=== PATIENT | male | born 1935 | race Caucasian/White ===

== ENCOUNTER 2016-09-15 06:56 | Emergency (ER) | payer MEDICARE, OTHER | END 2016-09-15 07:40 | disposition home or self-care (01) | LOC: BURERS 06:56 | DX: B35.6 Tinea cruris (principal); I10 Essential (primary) hypertension; E78.5 Hyperlipidemia, unspecified; Z79.899 Other long term (current) drug therapy | CPT/HCPCS: 36416; 99283 ==

== ENCOUNTER 2017-04-15 10:31 | Emergency (ER) | payer MEDICARE, OTHER ==
[2017-04-15] MEDS ORDERED: Bacitracin Zinc 1 Packet ONE (10:53)
[2017-04-15] MEDS ORDERED: Adacel (T-DAP) 0.5 ML VIAL ONE (10:59)
== END 2017-04-15 11:37 | disposition home or self-care (01) ==
LOC: BURERS 10:31
DX: S51.011A Laceration without foreign body of right elbow, initial encounter (principal); I10 Essential (primary) hypertension; E78.5 Hyperlipidemia, unspecified; W10.9XXA Fall (on) (from) unspecified stairs and steps, initial encounter
CPT/HCPCS: 90471; 90715

== ENCOUNTER 2017-05-27 11:42 | Emergency (ER) | payer MEDICARE, OTHER ==
[2017-05-27] MEDS ORDERED: Cephalexin 250 MG CAP ONE (12:11)
== END 2017-05-27 12:22 | disposition home or self-care (01) ==
LOC: BURERS 11:42
DX: L03.116 Cellulitis of left lower limb (principal); I10 Essential (primary) hypertension; E78.5 Hyperlipidemia, unspecified; M19.90 Unspecified osteoarthritis, unspecified site; Z79.899 Other long term (current) drug therapy
CPT/HCPCS: 99282

== ENCOUNTER 2017-09-29 09:03 | Emergency (ER) | payer MEDICARE, OTHER | END 2017-09-29 10:40 | disposition home or self-care (01) | LOC: BURERS 09:03 | DX: R04.0 Epistaxis (principal); I10 Essential (primary) hypertension; E78.00 Pure hypercholesterolemia, unspecified; Z79.899 Other long term (current) drug therapy | CPT/HCPCS: 99283 ==

== ENCOUNTER 2017-12-19 08:20 | Outpatient (CLI) | payer MEDICARE, OTHER ==
--- NOTE | 2017-12-19 11:02 | CT ---
CT ABDOMEN AND PELVIS WITHOUT CONTRAST: Technique: Multiple axial tomograms were obtained through the abdomen and pelvis without IV enhancement. Indications: Renal calculus. Abdominal pain. Comparison: January 2010 FINDINGS: Images through the lung bases reveal small bilateral pleural effusions. Liver, spleen, and pancreas appear unremarkable within the limitations of an unenhanced exam. There is a density layering dependently in the gallbladder, consistent with tiny stones, gravel or de nse sludge. Adrenal glands appear normal. Review of the kidneys show two tiny nonobstructing calculi in the midpole collecting structures of th e left kidney, one measuring approximately 1 mm and the other measuring approximately 2 mm. There is no hydronephrosis. Ureters are unremarkable. The bladder is contracted and not well evaluated. Small bowel loops appear normal. Appendix is not identified. Colon is unremarkable. There are scatter ed diverticula without CT evidence of diverticulitis. Aorta is calcified but normal caliber. No adenopathy or soft tissue mass lesion identified. Prostate is mildly enlarged. Osseous structures appear unremarkable. IMPRESSION: 1. Small bilateral pleural effusions. 2. Tiny stones/gravel in the gallbladder. 3. Two tiny nonobstructing calculi in the upper collecting structures of the left kidney. No evidence of ureteral calculus or hydronephrosis. POS: [facility]
== END 2017-12-19 08:21 | disposition home or self-care (01) ==
LOC: BURCT 08:20
PROVIDERS: ATTEND Urology
DX: N20.0 Calculus of kidney (principal); K80.20 Calculus of gallbladder without cholecystitis without obstruction; J90 Pleural effusion, not elsewhere classified
CPT/HCPCS: 74176

== ENCOUNTER 2018-01-24 09:08 | Emergency (ER) | payer MEDICARE, OTHER ==
[2018-01-24 09:52] LABS: #Basophils 0.1 thou/uL (0.0-0.2); #Monocytes 0.7 thou/uL (0.11-0.59); #Neutrophils 9.2 thou/uL (1.40-6.50); %Basophils 0.7 % (0.0-1.0); %Eosinophils 0.4 % (0.0-10.0); %Lymphocytes 9.1 % (21.0-51.0); %Monocytes 6.6 % (0.0-10.0); %Neutrophils 83.2 % (42.0-75.0); Hemoglobin 15.4 g/dL (14.0-18.0); Mean Corpuscular HGB CONC 35.4 g/dL (32.0-36.0); Mean Corpuscular Volume 90.6 fL (78.0-98.0); Mean Platelet Volume 7.7 fL (7.4-10.4); Platelet Count 151 thou/uL (130-400); RBC Distribution Width 13.1 % (11.5-14.5); Red Blood Cell (RBC) Count 4.79 mill/uL (4.70-6.10); White Blood Cell (WBC) Count 11.1 thou/uL (4.8-10.8)
[2018-01-24] MEDS ORDERED: Sulfameth/Trimethoprim DS 800-160mg TAB ONE (10:15)
== END 2018-01-24 10:25 | disposition home or self-care (01) ==
LOC: BURERS 09:08
DX: L03.115 Cellulitis of right lower limb (principal); I83.93 Asymptomatic varicose veins of bilateral lower extremities; I10 Essential (primary) hypertension; E78.5 Hyperlipidemia, unspecified; M10.9 Gout, unspecified; N40.0 Benign prostatic hyperplasia without lower urinary tract symptoms; Z79.899 Other long term (current) drug therapy
CPT/HCPCS: 36415; 85025; 99283